=== PATIENT | male | born 1960 | race Asian ===

== ENCOUNTER → 2016-09-07 | Outpatient (CLI) | payer BC ==
[~2016-09-07] MED LIST: AMIT10TA6 PO; LISI10TA5 PO; METO50TA5 PO; REGADENOSON 0.4 MG/5 ML IV ONE; SIMV10TA2 PO; TAMS-11 PO
== END | disposition home or self-care (01) ==
LOC: NM 06:37
PROVIDERS: ATTEND Specialist
DX: R55 Syncope and collapse (principal); I10 Essential (primary) hypertension
CPT/HCPCS: 78452; 93017; 93306; A9500; J2785

== ENCOUNTER → 2017-04-22 | Outpatient (CLI) | payer BC ==
[~2017-04-22] MED LIST changes: +METO-539 PO; -METO50TA5 PO; -REGADENOSON 0.4 MG/5 ML IV ONE
[2017-04-22 07:20] LABS: BASOPHILS % 0.7 % (0.0-2.0); EOSINOPHILS % 9.6 % (0.0-5.0); HEMATOCRIT. 46.7 % (42.0-52.0); HEMOGLOBIN. 15.8 g/dL (14.0-18.0); MEAN CORPUSCULAR HEMOGLOBIN 32.9 pg (28.0-32.0); MEAN CORPUSCULAR VOLUME 96.9 fL (80.0-94.0); MEAN PLATELET VOLUME 7.1 fl (7.4-10.4); MONOCYTES % 7.3 % (2.0-8.0); NEUTROPHILS % 35.4 % (40.0-76.0); PLATELET 262 x1000/uL (130-400); RED BLOOD CELL COUNT 4.81 mill/uL (4.7-6.1); RED CELL DISTRIBUTION WIDTH 12.7 % (11.6-14.6)
[2017-04-22 08:35] LABS: CHLORIDE 104 mEq/L (98-107)
[2017-04-22 08:59] LABS: CARBON DIOXIDE 27 mEq/L (21-32); HDL CHOLESTEROL 59 mg/dL (40-59); LDL CHOLESTEROL 116 mg/dL (5-100)
== END | disposition home or self-care (01) ==
LOC: LAB 06:26
PROVIDERS: ATTEND Specialist
DX: R55 Syncope and collapse (principal)
CPT/HCPCS: 36415; 80053; 80061; 85025

== ENCOUNTER → 2017-09-30 | Outpatient (CLI) | payer BC ==
[2017-09-30 06:40] LABS: BASOPHILS % 0.9 % (0.0-2.0); EOSINOPHILS % 11.1 % (0.0-5.0); HEMATOCRIT. 45.4 % (42.0-52.0); HEMOGLOBIN. 15.9 g/dL (14.0-18.0); LYMPHOCYTES % 48.4 % (20.0-50.0); MEAN CORPUSCULAR HEMOGLOBIN 33.4 pg (28.0-32.0); MEAN CORPUSCULAR VOLUME 95.4 fL (80.0-94.0); MONOCYTES % 7.3 % (2.0-8.0); NEUTROPHILS % 32.3 % (40.0-76.0); PLATELET 246 x1000/uL (130-400); RED BLOOD CELL COUNT 4.76 mill/uL (4.7-6.1); RED CELL DISTRIBUTION WIDTH 12.8 % (11.6-14.6)
[2017-09-30 07:16] LABS: CHLORIDE 105 mEq/L (98-107)
[2017-09-30 07:26] LABS: HDL CHOLESTEROL 53 mg/dL (40-59); LDL CHOLESTEROL 93 mg/dL (5-100); TOTAL IRON BINDING CAPACITY 287 ug/dL (250-450)
[2017-09-30 07:29] LABS: T4 FREE 1.01 ng/dL (0.76-1.46)
[2017-10-04 10:07] LABS: 25-HYDROXY VITAMIN D3 19 ng/mL (.)
== END | disposition home or self-care (01) ==
LOC: LAB 05:54
PROVIDERS: ATTEND Internal Medicine
DX: E55.9 Vitamin D deficiency, unspecified (principal); E78.2 Mixed hyperlipidemia; I11.9 Hypertensive heart disease without heart failure; R55 Syncope and collapse
CPT/HCPCS: 36415; 80053; 80061; 82306; 83036; 83540; 83550; 84439; 84443; 84481; 85025

== ENCOUNTER → 2018-07-14 | Outpatient (CLI) | payer BC ==
[2018-07-14 06:41] LABS: BASOPHILS % 0.7 % (0.0-2.0); EOSINOPHILS % 11.2 % (0.0-5.0); HEMATOCRIT. 45.4 % (42.0-52.0); HEMOGLOBIN. 15.8 g/dL (14.0-18.0); LYMPHOCYTES % 49.7 % (20.0-50.0); MEAN CORPUSCULAR HEMOGLOBIN 33.8 pg (28.0-32.0); MONOCYTES % 6.5 % (2.0-8.0); NEUTROPHILS % 31.9 % (40.0-76.0); PLATELET 252 x1000/uL (130-400); RED BLOOD CELL COUNT 4.68 mill/uL (4.7-6.1)
[2018-07-14 06:50] LABS: CHLORIDE 104 mEq/L (98-107)
[2018-07-14 07:04] LABS: LDL CHOLESTEROL 100 mg/dL (5-100)
[2018-07-14 07:05] LABS: HDL CHOLESTEROL 59 mg/dL (40-59)
== END | disposition home or self-care (01) ==
LOC: LAB 05:47
PROVIDERS: ATTEND Specialist
DX: R55 Syncope and collapse (principal)
CPT/HCPCS: 36415; 80061; 82306; 83036; 84439; 84443; 84481

== ENCOUNTER → 2019-05-31 | Outpatient (CLI) | payer BC | END | disposition home or self-care (01) | LOC: US 16:30 | PROVIDERS: ATTEND Internal Medicine | DX: N39.0 Urinary tract infection, site not specified (principal) | CPT/HCPCS: 76770 ==

== ENCOUNTER 2019-09-10 08:17 | Inpatient (IN) | payer BC ==
[~2019-09-10] VITALS: Ht 167.6 cm; Wt 73.0 kg
[2019-09-10] MEDS ORDERED: SODIUM CHLORIDE 0.9% 1000ML BAG (SEPSIS BOLUS) IV ONE (09:00)
[2019-09-10 09:43] LABS: BASOPHILS % 0.8 % (0.0-2.0); EOSINOPHILS % 1.6 % (0.0-5.0); HEMATOCRIT. 46.9 % (42.0-52.0); HEMOGLOBIN. 16.5 g/dL (14.0-18.0); MEAN CORPUSCULAR HEMOGLOBIN 34.1 pg (28.0-32.0); MEAN CORPUSCULAR VOLUME 96.6 fL (80.0-94.0); MEAN PLATELET VOLUME 7.1 fl (7.4-10.4); MONOCYTES % 6.9 % (2.0-8.0); NEUTROPHILS % 70.7 % (40.0-76.0); PLATELET 227 x1000/uL (130-400); RED BLOOD CELL COUNT 4.85 mill/uL (4.7-6.1); RED CELL DISTRIBUTION WIDTH 13.3 % (11.6-14.6)
[2019-09-10 09:49] LABS: CHLORIDE 107 mEq/L (98-107)
[2019-09-10 09:54] LABS: ETHANOL BLOOD < 10 mg/dL
[2019-09-10 09:55] LABS: PHOSPHORUS 2.6 mg/dL (2.5-4.9)
[2019-09-10 10:07] LABS: CLARITY URINE CLEAR (CLEAR); COLOR URINE YELLOW (YELLOW); KETONES URINE NEGATIVE (NEGATIVE); LEUKOCYTE ESTERASE URINE NEGATIVE (NEGATIVE); NITRITE URINE NEGATIVE (NEGATIVE); OCCULT BLOOD URINE 2+ (NEGATIVE); PH URINE 5.5 (4.5-8.0); PROTEIN URINE NEGATIVE (NEGATIVE); SPECIFIC GRAVITY URINE 1.013 (1.005-1.030); UROBILINOGEN URINE 0.2 E.U./dL (0.2-1.0)
[2019-09-10 10:35] LABS: *AMPHETAMINES SCREEN URINE NEGATIVE (NEGATIVE); *BARBITURATES SCREEN URINE NEGATIVE (NEGATIVE); *BENZODIAZEPINES SCREEN URINE NEGATIVE (NEGATIVE); *COCAINE SCREEN URINE NEGATIVE (NEGATIVE)
[2019-09-10 10:36] LABS: CANNABINOID URINE SCREEN NEGATIVE (NEGATIVE); METHADONE URINE SCREEN NEGATIVE (NEGATIVE); OPIATES URINE SCREEN NEGATIVE (NEGATIVE); PHENCYCLIDINE URINE SCREEN NEGATIVE (NEGATIVE)
[2019-09-10 11:15] LABS: D-DIMER 0.27 mg/L FEU (<0.50); PROTHROMBIN TIME 10.7 sec (9.6-11.0)
[2019-09-10 12:00] VITALS: BP 144/86
[2019-09-10] MEDS ORDERED: ACETAMINOPHEN 325MG TABLET PO PRN (12:00)
[2019-09-10] MEDS ORDERED: CEFTRIAXONE 1 G PREMIX 50 ML IV SCH (12:00)
[2019-09-10] MEDS ORDERED: LORAZEPAM 2MG/ML CPJ IV PRN (12:00)
[2019-09-10] MEDS ORDERED: IPRATROPIUM/ALBUTEROL 0.5-3(2.5)MG/3ML NEB HHN PRN (12:00)
[2019-09-10] MEDS ORDERED: MAGNESIUM/ALUMINUM HYDROXIDE/SIMETHICONE 30ML UDC PO PRN (12:00)
[2019-09-10] MEDS ORDERED: HYDROCODONE/ACETAMINOPHEN 10/325MG TABLET PO PRN (12:00)
[2019-09-10] MEDS ORDERED: HYDRALAZINE 20MG/ML VIAL IV PRN (12:00)
[2019-09-10] MEDS ORDERED: DIPHENHYDRAMINE 50MG/ML VIAL IV PRN (12:00)
[2019-09-10] MEDS ORDERED: GUAIFENESIN 200MG/10ML SUGAR FREE UDC PO PRN (12:00)
[2019-09-10] MEDS ORDERED: CLONIDINE 0.1MG TABLET PO PRN (12:00)
[2019-09-10] MEDS ORDERED: ONDANSETRON HCL 4MG/2ML INJ IV PRN (12:00)
[2019-09-10] MEDS ORDERED: LEVOFLOXACIN 500MG PREMIX 100 ML IV SCH (13:00)
[2019-09-10 13:01] VITALS: BP 144/87
[2019-09-10] MEDS ORDERED: OLME20TA13 PO (15:30)
[2019-09-10] MEDS: SODIUM CHLORIDE 0.45% 1,000 ML IV SCH (15:39)
[2019-09-10] MEDS: LOSARTAN POTASSIUM 25 MG TABLET PO SCH (15:40)
[2019-09-10] MEDS: ENOXAPARIN 40MG/0.4ML SYR SUBCUT SCH (15:40)
[2019-09-10] MEDS: SODIUM CHLORIDE 0.9% INJ 3ML FLUSH IVF SCH (15:40)
[2019-09-10 16:00] VITALS: BP 132/82
[2019-09-10 16:35] LABS: CREATINE KINASE 124 IU/L (39-308)
[2019-09-10] MEDS: MORPHINE SULFATE 2 MG/ML CPJ (NOT FOR IM USE) IV PRN (18:45)
[2019-09-10 20:00] VITALS: BP 123/79
[2019-09-10] MEDS: DOCUSATE SODIUM 100MG CAPSULE PO PRN (21:06)
[2019-09-10] MEDS: ATORVASTATIN CALCIUM 20MG TABLET PO SCH (21:06)
[2019-09-10 23:53] LABS: CREATINE KINASE 141 IU/L (39-308)
[2019-09-10 23:54] LABS: CREATINE KINASE MB FRACTION < 1.0 ng/mL (0.5-3.6)
[2019-09-11] VITALS: BP 123/80
[2019-09-11 04:00] VITALS: BP_SYST 120; BP_SYST 125; BP_SYST 130; BP_DIAS 80; BP_DIAS 82; BP_DIAS 84
[2019-09-11] MEDS: SODIUM CHLORIDE 0.45% 1,000 ML IV SCH ×3 (05:07→21:03)
[2019-09-11] MEDS: SODIUM CHLORIDE 0.9% INJ 3ML FLUSH IVF SCH ×4 (05:07→21:03)
[2019-09-11 06:15] LABS: CHLORIDE 108 mEq/L (98-107)
[2019-09-11 06:22] LABS: BASOPHILS % 0.5 % (0.0-2.0); EOSINOPHILS % 7.3 % (0.0-5.0); HEMATOCRIT. 42.8 % (42.0-52.0); HEMOGLOBIN. 14.7 g/dL (14.0-18.0); LYMPHOCYTES % 41.6 % (20.0-50.0); MEAN CORPUSCULAR HEMOGLOBIN 33.5 pg (28.0-32.0); MEAN CORPUSCULAR VOLUME 97.5 fL (80.0-94.0); MEAN PLATELET VOLUME 7.3 fl (7.4-10.4); MONOCYTES % 7.4 % (2.0-8.0); NEUTROPHILS % 43.2 % (40.0-76.0); PLATELET 223 x1000/uL (130-400); RED BLOOD CELL COUNT 4.39 mill/uL (4.7-6.1); RED CELL DISTRIBUTION WIDTH 12.9 % (11.6-14.6)
[2019-09-11] MEDS: LOSARTAN POTASSIUM 25 MG TABLET PO SCH (09:41)
[2019-09-11] MEDS: ENOXAPARIN 40MG/0.4ML SYR SUBCUT SCH (09:42)
[2019-09-11 12:00] VITALS: BP 142/87
[2019-09-11] MEDS ORDERED: GADOBENATE DIMEGLUMINE 529 MG/ML 10ML IV ONE (14:33)
[2019-09-11 16:00] VITALS: BP 137/83
[2019-09-11 20:00] VITALS: BP 147/75
[2019-09-11] MEDS: ATORVASTATIN CALCIUM 20MG TABLET PO SCH (21:03)
[2019-09-11] MEDS: DOCUSATE SODIUM 100MG CAPSULE PO PRN (21:07)
[2019-09-12 04:00] VITALS: BP 125/72
[2019-09-12] MEDS: SODIUM CHLORIDE 0.9% INJ 3ML FLUSH IVF SCH (05:13)
[2019-09-12 05:46] LABS: CHLORIDE 107 mEq/L (98-107)
[2019-09-12 06:56] LABS: BASOPHILS % 0.4 % (0.0-2.0); EOSINOPHILS % 6.7 % (0.0-5.0); HEMOGLOBIN. 14.7 g/dL (14.0-18.0); LYMPHOCYTES % 35.2 % (20.0-50.0); MEAN CORPUSCULAR HEMOGLOBIN 33.9 pg (28.0-32.0); MEAN CORPUSCULAR VOLUME 96.9 fL (80.0-94.0); MEAN PLATELET VOLUME 7.3 fl (7.4-10.4); MONOCYTES % 8.8 % (2.0-8.0); NEUTROPHILS % 48.9 % (40.0-76.0); PLATELET 221 x1000/uL (130-400); RED BLOOD CELL COUNT 4.33 mill/uL (4.7-6.1)
[2019-09-12 08:00] VITALS: BP 146/83
[2019-09-12] MEDS: ENOXAPARIN 40MG/0.4ML SYR SUBCUT SCH (09:46)
[2019-09-12] MEDS: LOSARTAN POTASSIUM 25 MG TABLET PO SCH (09:46)
[2019-09-12 12:00] VITALS: BP 126/80
[2019-09-12] MEDS: MORPHINE SULFATE 2 MG/ML CPJ (NOT FOR IM USE) IV PRN (12:20)
[2019-09-12 13:39] VITALS: BP 126/80
== END 2019-09-12 14:10 | disposition home or self-care (01) | DRG 872 ==
LOC: ER 08:17 → MICUSO 10:51 → EDBEDREQ 10:53 → 5WST 13:34
PROVIDERS: ADMIT Internal Medicine; ATTEND Internal Medicine
DX: A41.9 Sepsis, unspecified organism (principal); I10 Essential (primary) hypertension; R65.20 Severe sepsis without septic shock; E78.5 Hyperlipidemia, unspecified; M47.9 Spondylosis, unspecified; G43.909 Migraine, unspecified, not intractable, without status migrainosus; M48.02 Spinal stenosis, cervical region; Z79.899 Other long term (current) drug therapy; Z82.3 Family history of stroke; Z82.49 Family history of ischemic heart disease and other diseases of the circulatory system
CPT/HCPCS: 36415; 70551; 70552; 71045; 72141; 80048; 80053; 80305; 80320; 81003; 82550; 82553; 83605; 83735; 83880; 84100; 84443; 84484; 85025; 85379; 86850; 86900; 93005; 93306; 93880; 93970; 95816; 99291; A9577; J0696; J1650; J1956; J2270; J7030; G0480

== ENCOUNTER → 2019-12-03 | Outpatient (CLI) | payer BC ==
[~2019-12-03] MED LIST changes: -AMIT10TA6 PO; -LISI10TA5 PO; -METO-539 PO; +OLME20TA13 PO; -TAMS-11 PO
== END | disposition home or self-care (01) ==
LOC: MRI 16:32
PROVIDERS: ATTEND Psychiatry & Neurology Neurology
DX: G93.9 Disorder of brain, unspecified (principal)
CPT/HCPCS: 70553; A9577

== ENCOUNTER → 2020-02-28 | Outpatient (CLI) | payer BC ==
[~2020-02-28] MED LIST changes: +GADOTERATE MEGLUMINE 5 MMOL/10 ML VIAL IV ONE
== END | disposition home or self-care (01) ==
LOC: MRI 08:35
PROVIDERS: ATTEND Psychiatry & Neurology Neurology
DX: G43.109 Migraine with aura, not intractable, without status migrainosus (principal); H81.10 Benign paroxysmal vertigo, unspecified ear; I10 Essential (primary) hypertension
CPT/HCPCS: 70544; 70549; 70553; 95819; A9577

== ENCOUNTER → 2020-04-05 | Outpatient (CLI) | payer BC ==
[~2020-04-05] MED LIST changes: -GADOTERATE MEGLUMINE 5 MMOL/10 ML VIAL IV ONE
[2020-04-05 06:40] LABS: BASOPHILS % 0.7 % (0.0-2.0); EOSINOPHILS % 9.6 % (0.0-5.0); HEMATOCRIT. 47.6 % (42.0-52.0); HEMOGLOBIN. 16.2 g/dL (14.0-18.0); LYMPHOCYTES % 49.9 % (20.0-50.0); MEAN CORPUSCULAR HEMOGLOBIN 33.2 pg (28.0-32.0); MEAN CORPUSCULAR VOLUME 97.7 fL (80.0-94.0); MEAN PLATELET VOLUME 7.1 fl (7.4-10.4); MONOCYTES % 6.5 % (2.0-8.0); NEUTROPHILS % 33.3 % (40.0-76.0); PLATELET 271 x1000/uL (130-400); RED BLOOD CELL COUNT 4.87 mill/uL (4.7-6.1)
[2020-04-05 07:19] LABS: T4 FREE 1.08 ng/dL (0.76-1.46)
== END | disposition home or self-care (01) ==
LOC: LAB 06:05
PROVIDERS: ATTEND Specialist
DX: E78.2 Mixed hyperlipidemia (principal); E55.9 Vitamin D deficiency, unspecified; E11.9 Type 2 diabetes mellitus without complications; D64.9 Anemia, unspecified
CPT/HCPCS: 36415; 80061; 82306; 83036; 84439; 84443; 84480; 85025

== ENCOUNTER → 2020-12-05 | Outpatient (CLI) | payer BC ==
[2020-12-05 05:53] LABS: BASOPHILS % 0.6 % (0.0-2.0); EOSINOPHILS % 6.9 % (0.0-5.0); HEMATOCRIT. 47.5 % (42.0-52.0); HEMOGLOBIN. 16.1 g/dL (14.0-18.0); LYMPHOCYTES % 42.9 % (20.0-50.0); MEAN CORPUSCULAR HEMOGLOBIN 32.8 pg (28.0-32.0); MEAN CORPUSCULAR VOLUME 96.5 fL (80.0-94.0); MEAN PLATELET VOLUME 7.1 fl (7.4-10.4); MONOCYTES % 7.5 % (2.0-8.0); NEUTROPHILS % 42.1 % (40.0-76.0); PLATELET 264 x1000/uL (130-400); RED BLOOD CELL COUNT 4.92 mill/uL (4.7-6.1)
[2020-12-05 06:01] LABS: CHLORIDE 106 mEq/L (98-107)
[2020-12-05 06:09] LABS: LDL CHOLESTEROL 104 mg/dL (5-100)
[2020-12-05 06:10] LABS: HDL CHOLESTEROL 67 mg/dL (40-59)
== END | disposition home or self-care (01) ==
LOC: ER 05:21
DX: E78.2 Mixed hyperlipidemia (principal)
CPT/HCPCS: 36415; 80053; 80061; 80076; 82306; 83036; 84153; 84443; 85025; Z7610; G0103

== ENCOUNTER → 2021-04-28 | Outpatient (CLI) | payer BC | END | disposition home or self-care (01) | LOC: CT 07:31 | PROVIDERS: ATTEND Internal Medicine | DX: N20.0 Calculus of kidney (principal); N28.89 Other specified disorders of kidney and ureter; K82.8 Other specified diseases of gallbladder | CPT/HCPCS: 74176 ==

== ENCOUNTER → 2022-01-21 | Outpatient (CLI) | payer BC | END | disposition home or self-care (01) | LOC: MRI 16:18 | PROVIDERS: ATTEND Psychiatry & Neurology Neurology | DX: M47.812 Spondylosis without myelopathy or radiculopathy, cervical region (principal); M25.78 Osteophyte, vertebrae; M48.02 Spinal stenosis, cervical region | CPT/HCPCS: 72141 ==

== ENCOUNTER → 2022-05-29 | Outpatient (CLI) | payer BC ==
[~2022-05-29] MED LIST changes: +SIMV-341 PO; -SIMV10TA2 PO
[2022-05-29 07:37] LABS: BASOPHILS % 0.6 % (0.0-2.0); HEMATOCRIT. 46.5 % (42.0-52.0); HEMOGLOBIN. 16.1 g/dL (14.0-18.0); LYMPHOCYTES % 50.2 % (20.0-50.0); MEAN CORPUSCULAR HEMOGLOBIN 33.8 pg (28.0-32.0); MEAN CORPUSCULAR VOLUME 97.3 fL (80.0-94.0); MEAN PLATELET VOLUME 7.3 fl (7.4-10.4); MONOCYTES % 8.2 % (2.0-8.0); PLATELET 255 x1000/uL (130-400); RED BLOOD CELL COUNT 4.77 mill/uL (4.7-6.1)
[2022-05-29 07:46] LABS: CHLORIDE 105 mEq/L (98-107)
[2022-05-29 08:01] LABS: HDL CHOLESTEROL 60 mg/dL (40-59); LDL CHOLESTEROL 99 mg/dL (5-100)
[2022-05-29 08:57] LABS: PROSTRATE SPECIFIC AG TOTAL 1.03 ng/mL (0.0-4.0)
[2022-05-29 08:58] LABS: VITAMIN B12 SERUM 942 pg/mL (211-911)
[2022-05-30 10:10] LABS: VITAMIN D 1-25 DIHYDROXY 62.5 pg/mL (24.8-81.5)
== END | disposition home or self-care (01) ==
LOC: LAB 06:23
PROVIDERS: ATTEND Internal Medicine
DX: Z00.00 Encounter for general adult medical examination without abnormal findings (principal)
CPT/HCPCS: 36415; 80053; 80061; 82248; 82607; 82652; 83036; 84153; 84436; 84443; 85025; G0103

== ENCOUNTER → 2023-02-25 | Outpatient (CLI) | payer BC ==
[2023-02-25 07:49] LABS: ALANINE AMINOTRANSFERASE 20 IU/L (10-49); ALBUMIN 4.6 g/dL (3.2-4.8); ASPARTATE AMINOTRANSFERASE 22 IU/L (<34); BILIRUBIN TOTAL 0.9 mg/dL (0.1-1.0); CALCIUM 9.9 mg/dL (8.7-10.4); CARBON DIOXIDE 28 mEq/L (21-32); CHLORIDE 104 mEq/L (98-107); CHOLESTEROL 158 mg/dL (<200); CREATININE 1.1 mg/dL (0.6-1.3); GLUCOSE 108 mg/dL (70-105); HDL CHOLESTEROL 57 mg/dL (>55); LDL CHOLESTEROL 87 mg/dL (5-100); POTASSIUM 4.3 mEq/L (3.5-5.1); PROTEIN TOTAL 7.6 g/dL (6.0-8.3); SODIUM 142 mEq/L (136-145); T4 FREE 1.16 ng/dL (0.89-1.76); THYROID STIMULATING HORMONE 2.04 uIU/mL (0.55-4.78); TRIGLYCERIDE 148 mg/dL (0-150); UREA NITROGEN BLOOD 15 mg/dL (9-23)
[2023-02-25 08:07] LABS: BASOPHILS % 0.4 % (0.0-2.0); EOSINOPHILS % 6.8 % (0.0-5.0); HEMATOCRIT. 45.8 % (42.0-52.0); HEMOGLOBIN. 15.7 g/dL (14.0-18.0); LYMPHOCYTES % 45.2 % (20.0-50.0); MEAN CORPUSCULAR HEMOGLOBIN 33.8 pg (28.0-32.0); MEAN CORPUSCULAR HGB CONC 34.3 g/dL (31.0-37.0); MEAN CORPUSCULAR VOLUME 98.3 fL (80.0-94.0); MEAN PLATELET VOLUME 7.4 fl (7.4-10.4); MONOCYTES % 8.4 % (2.0-8.0); NEUTROPHILS % 39.2 % (40.0-76.0); PLATELET 274 x1000/uL (130-400); RED BLOOD CELL COUNT 4.66 mill/uL (4.7-6.1); WHITE BLOOD COUNT 6.5 x1000/uL (4.5-11.0)
[2023-02-25 10:38] LABS: VITAMIN B12 SERUM 570 pg/mL (211-911)
== END | disposition home or self-care (01) ==
LOC: LAB 06:24
PROVIDERS: ATTEND Internal Medicine
DX: E11.9 Type 2 diabetes mellitus without complications (principal); E78.5 Hyperlipidemia, unspecified; R53.83 Other fatigue; D64.9 Anemia, unspecified
CPT/HCPCS: 36415; 80053; 80061; 82306; 82607; 83036; 84153; 84439; 84443; 84481; 85025; G0103

== ENCOUNTER → 2023-12-20 | Outpatient (CLI) | payer BC ==
[~2023-12-20] MED LIST changes: +AMIT10TA6 PO; +AMLO10TA4 PO; +BENI5 PO; -OLME20TA13 PO
== END | disposition home or self-care (01) ==
LOC: CARD 14:04
PROVIDERS: ATTEND Specialist
DX: I51.7 Cardiomegaly (principal)
CPT/HCPCS: 93306

== ENCOUNTER → 2024-01-06 | Outpatient (CLI) | payer BC ==
[2024-01-06 07:09] LABS: BASOPHILS % 0.6 % (0.0-2.0); EOSINOPHILS % 6.3 % (0.0-5.0); HEMOGLOBIN. 15.1 g/dL (14.0-18.0); LYMPHOCYTES % 39.4 % (20.0-50.0); MEAN CORPUSCULAR HEMOGLOBIN 33.5 pg (28.0-32.0); MEAN CORPUSCULAR HGB CONC 34.4 g/dL (31.0-37.0); MEAN CORPUSCULAR VOLUME 97.2 fL (80.0-94.0); MEAN PLATELET VOLUME 6.9 fl (7.4-10.4); MONOCYTES % 7.3 % (2.0-8.0); NEUTROPHILS % 46.4 % (40.0-76.0); PLATELET 289 x1000/uL (130-400); RED BLOOD CELL COUNT 4.52 mill/uL (4.7-6.1); RED CELL DISTRIBUTION WIDTH 13.2 % (11.6-14.6); WHITE BLOOD COUNT 6.8 x1000/uL (4.5-11.0)
[2024-01-06 07:12] LABS: CARBON DIOXIDE 29 mEq/L (21-32); CHLORIDE 105 mEq/L (98-107); POTASSIUM 4.8 mEq/L (3.5-5.1); SODIUM 140 mEq/L (136-145)
[2024-01-06 07:13] LABS: CALCIUM 10.2 mg/dL (8.7-10.4)
[2024-01-06 07:17] LABS: CREATININE 1.3 mg/dL (0.6-1.3)
[2024-01-06 07:18] LABS: GLUCOSE 111 mg/dL (70-105); TRIGLYCERIDE 121 mg/dL (0-150); UREA NITROGEN BLOOD 19 mg/dL (9-23)
[2024-01-06 07:19] LABS: ALANINE AMINOTRANSFERASE 47 IU/L (10-49); ALBUMIN 4.8 g/dL (3.2-4.8); ASPARTATE AMINOTRANSFERASE 30 IU/L (<34); LDL CHOLESTEROL 90 mg/dL (5-100)
[2024-01-06 07:20] LABS: BILIRUBIN TOTAL 0.5 mg/dL (0.1-1.0); CHOLESTEROL 151 mg/dL (<200); HDL CHOLESTEROL 50 mg/dL (>55); PROTEIN TOTAL 8.3 g/dL (6.0-8.3)
[2024-01-06 07:21] LABS: T4 FREE 1.35 ng/dL (0.89-1.76)
[2024-01-06 07:22] LABS: THYROID STIMULATING HORMONE 1.94 uIU/mL (0.55-4.78)
[2024-01-06 07:53] LABS: DIGOXIN < 0.1 ng/mL (0.8-2.0)
== END | disposition home or self-care (01) ==
LOC: ER 06:21
PROVIDERS: ATTEND Specialist
DX: E78.2 Mixed hyperlipidemia (principal); E11.9 Type 2 diabetes mellitus without complications; E55.9 Vitamin D deficiency, unspecified
CPT/HCPCS: 36415; 80053; 80061; 80162; 82306; 83036; 83735; 83880; 84439; 84443; 84481; 85025